=== PATIENT | male | born 1965 | race Caucasian/White ===

== ENCOUNTER 2024-04-07 06:03 | Inpatient (IN) | payer OTHER ==
[~2024-04-07] VITALS: Ht 182.9 cm; Wt 108.0 kg
[~2024-04-07 06:03] MED LIST: AMLODIPINE BESY10 MG PO; ASPIRIN81 MG PO; BUPROPION XL150 MG PO; CIALIS20 MG PO; COREG12.5 MG PO; FLOMAX0.4 MG PO; GABAPENTIN300 MG PO; LIPITOR10 MG PO; METFORMIN HCL500 MG PO; MULTI-VITAMIN1 EACH PO; OZEMPIC2 MG/0.75 INJ; ZESTRIL10 MG PO
[2024-04-07] MEDS: SODIUM CHLORIDE 0.9% 1000ML 1,000 ML ONE (06:45)
[2024-04-07] MEDS: CEFTRIAXONE 1 GM VIAL ONE (06:45)
[2024-04-07 07:05] LABS: BASOPHILS # (AUTO) 0.1 (0.0-0.1); EOSINOPHILS # (AUTO) 0.2 (0.0-0.4); HEMATOCRIT 38.5 % (38.2-49.6); HEMOGLOBIN 12.4 g/dL (14.0-18.0); LYMPHOCYTES # (AUTO) 1.5 (1.0-3.2); LYMPHOCYTES % 22.7 % (18.0-39.1); MEAN CORPUSCULAR HEMOGLOBIN 29.6 pg (28-32); MEAN CORPUSCULAR HGB CONC 32.2 g/dL (31-35); MEAN CORPUSCULAR VOLUME 91.9 fL (81-99); MONOCYTES # (AUTO) 0.6 (0.2-0.8); NEUTROPHILS # (AUTO) 4.3 (2.1-6.9); NEUTROPHILS % 63.9 % (38.7-80.0); PLATELET COUNT 232 x10e3/uL (140-360); RED BLOOD COUNT 4.19 x10e6/uL (4.3-5.7)
[2024-04-07 07:24] LABS: ANION GAP 13.5 mmol/L (8-16); CALCIUM 9.3 mg/dL (8.4-10.2); CREATININE, SERUM 1.09 mg/dL (0.72-1.25); POTASSIUM 4.5 mmol/L (3.5-5.1)
[2024-04-07] MEDS ORDERED: IOPAMIDOL 610MG/1ML 300 MG/ML VIAL IV ONE (10:04)
[2024-04-07] MEDS: HYDROMORPHONE 1MG/1ML INJ ONE (12:12)
[2024-04-07] MEDS ORDERED: ONDANSETRON HCL INJ 2MG/ML 2ML 2 MG/ML VIAL IV PRN (12:45)
[2024-04-07] MEDS: Morphine 2mg Syringe 2 MG/ML SYR ONE (12:45)
[2024-04-07] MEDS ORDERED: DIPHENHYDRAMINE HCL 25 MG CAP PO PRN (12:45)
[2024-04-07] MEDS: PHENAZOPYRIDINE HCL 100 MG TAB PO PRN (12:45)
[2024-04-07] MEDS ORDERED: MIDAZOLAM HCL 2 MG/2 ML VIAL ONE (13:03)
[2024-04-07] MEDS ORDERED: FENTANYL CITRATE/PF 100MCG/2 ML INJ ONE (13:03)
[2024-04-07 13:24] LABS: BASOPHILS # (AUTO) 0.1 (0.0-0.1); BASOPHILS % 0.3 % (0.0-1.0); EOSINOPHILS # (AUTO) 0.1 (0.0-0.4); EOSINOPHILS % 0.5 % (0.0-6.0); HEMATOCRIT 39.8 % (38.2-49.6); HEMOGLOBIN 12.6 g/dL (14.0-18.0); LYMPHOCYTES # (AUTO) 1.5 (1.0-3.2); LYMPHOCYTES % 9.7 % (18.0-39.1); MEAN CORPUSCULAR HEMOGLOBIN 29.9 pg (28-32); MEAN CORPUSCULAR HGB CONC 31.7 g/dL (31-35); MEAN CORPUSCULAR VOLUME 94.5 fL (81-99); MONOCYTES # (AUTO) 0.3 (0.2-0.8); MONOCYTES % 2.2 % (4.4-11.3); NEUTROPHILS # (AUTO) 13.3 (2.1-6.9); NEUTROPHILS % 86.8 % (38.7-80.0); PLATELET COUNT 249 x10e3/uL (140-360); RED BLOOD COUNT 4.21 x10e6/uL (4.3-5.7); RED CELL DISTRIBUTION WIDTH 11.9 % (11.7-14.4); WHITE BLOOD COUNT 15.31 x10e3/uL (4.8-10.8)
[2024-04-07] MEDS ORDERED: LIDOCAINE HCL 2% LOCAL INJ 5 ML SDV VIAL INJ ONE (13:32)
[2024-04-07] MEDS ORDERED: PROPOFOL IV EMULSION 10 MG/ML 20 ML VIAL ONE (13:32)
[2024-04-07] MEDS ORDERED: SEVOFLURANE INHAL SOLN 250 ML PEN BTL ONE (13:32)
[2024-04-07] MEDS ORDERED: DEXAMETHASONE SOD PHOS INJ 4 MG/ML SDV ONE (13:32)
[2024-04-07] MEDS ORDERED: ONDANSETRON HCL INJ 2MG/ML 2ML 2 MG/ML VIAL ONE (13:32)
[2024-04-07 13:34] VITALS: PULSE 74; RESP 20; O2SAT 95
[2024-04-07 13:39] LABS: ANION GAP 11.8 mmol/L (8-16); CALCIUM 8.5 mg/dL (8.4-10.2); CREATININE, SERUM 1.12 mg/dL (0.72-1.25); POTASSIUM 4.8 mmol/L (3.5-5.1)
[2024-04-07] MEDS: ACETAMINOPHEN/CODEINE 300MG - 30MG TAB PO PRN (13:54)
[2024-04-07] MEDS: ACETAMINOPHEN 1000 MG/100 ML IV PRN (13:54)
[2024-04-07] MEDS: SODIUM CHLORIDE 0.9% 1000ML 1,000 ML IV SCH (13:55)
[2024-04-07 15:48] VITALS: BP 132/61; PULSE 65; RESP 17; TEMP 97.8; O2SAT 100
[2024-04-07] MEDS: CARVEDILOL 12.5 MG TAB PO SCH (16:10)
[2024-04-07] MEDS: GABAPENTIN 300 MG CAP PO SCH (16:10)
[2024-04-07] MEDS: SENNA-S TABLET PO SCH (16:10)
[2024-04-07] MEDS: METFORMIN HCL 500 MG TAB PO SCH (16:10)
[2024-04-07] MEDS: GENTAMICIN 80MG/NS 100 ML 200 ML IV ONE (16:58)
[2024-04-07 17:37] VITALS: BP 132/62; PULSE 65; RESP 17; TEMP 97.8; O2SAT 100
[2024-04-07 20:15] VITALS: PULSE 75; RESP 20; O2SAT 95
[2024-04-07 20:34] VITALS: BP 144/59; PULSE 78; RESP 20; TEMP 97.9; O2SAT 99
[2024-04-07] MEDS: ATORVASTATIN 40 MG TAB PO SCH (21:11)
[2024-04-07] MEDS: TAMSULOSIN HCL 0.4 MG CAP PO SCH (21:12)
[2024-04-07 21:24] VITALS: BP 144/59; PULSE 78; RESP 20; TEMP 97.9; O2SAT 99
[2024-04-08] VITALS (10 sets, daily range): BP systolic 114–152; BP diastolic 55–61; PULSE 70–78; RESP 17–20; TEMP 98.1–99.3; O2SAT 96–100
[2024-04-08 05:29] LABS: BASOPHILS % 0.2 % (0.0-1.0); EOSINOPHILS % 0.1 % (0.0-6.0); HEMATOCRIT 35.4 % (38.2-49.6); HEMOGLOBIN 11.3 g/dL (14.0-18.0); LYMPHOCYTES # (AUTO) 1.2 (1.0-3.2); LYMPHOCYTES % 7.9 % (18.0-39.1); MEAN CORPUSCULAR HGB CONC 31.9 g/dL (31-35); MEAN CORPUSCULAR VOLUME 93.9 fL (81-99); MONOCYTES # (AUTO) 0.9 (0.2-0.8); MONOCYTES % 6.1 % (4.4-11.3); NEUTROPHILS % 85.2 % (38.7-80.0); PLATELET COUNT 254 x10e3/uL (140-360); RED BLOOD COUNT 3.77 x10e6/uL (4.3-5.7); RED CELL DISTRIBUTION WIDTH 11.9 % (11.7-14.4); WHITE BLOOD COUNT 15.26 x10e3/uL (4.8-10.8)
[2024-04-08 05:47] LABS: ANION GAP 13.4 mmol/L (8-16); CALCIUM 8.3 mg/dL (8.4-10.2); CREATININE, SERUM 0.91 mg/dL (0.72-1.25); POTASSIUM 4.4 mmol/L (3.5-5.1)
[2024-04-08] MEDS: MULTIVITAMINS/MINERALS TAB PO SCH (08:20)
[2024-04-08] MEDS: BUPROPION HCL 150 MG TABCR PO SCH (08:21)
[2024-04-08] MEDS: AMLODIPINE BESYLATE 10 MG TAB PO SCH (08:21)
[2024-04-08] MEDS: LISINOPRIL 20 MG TAB PO SCH (08:22)
[2024-04-08] MEDS ORDERED: TEMAZEPAM 15 MG CAP PO PRN (08:30)
[2024-04-08] MEDS ORDERED: DEXTROSE 50% SYRINGE 50 ML IV PRN (08:30)
[2024-04-08] MEDS ORDERED: ASPIRIN 81 MG CHEW TAB PO SCH (09:00)
[2024-04-08] MEDS: INSULIN LISPRO 100 UNIT/1 ML 3ML VIAL SQ SCH (11:30)
[2024-04-08] MEDS ORDERED: ONDANSETRON HCL 4 MG ORAL DISINTEGRATING TAB PO PRN (12:00)
[2024-04-09] VITALS (10 sets, daily range): BP systolic 120–145; BP diastolic 55–64; PULSE 65–78; RESP 18–21; TEMP 98.3–99.8; O2SAT 97–99
[2024-04-09 06:12] LABS: BASOPHILS % 0.4 % (0.0-1.0); EOSINOPHILS # (AUTO) 0.1 (0.0-0.4); EOSINOPHILS % 1.2 % (0.0-6.0); HEMATOCRIT 35.8 % (38.2-49.6); LYMPHOCYTES # (AUTO) 1.9 (1.0-3.2); LYMPHOCYTES % 19.4 % (18.0-39.1); MEAN CORPUSCULAR HEMOGLOBIN 29.3 pg (28-32); MEAN CORPUSCULAR HGB CONC 30.7 g/dL (31-35); MEAN CORPUSCULAR VOLUME 95.2 fL (81-99); MONOCYTES # (AUTO) 0.9 (0.2-0.8); MONOCYTES % 9.3 % (4.4-11.3); NEUTROPHILS # (AUTO) 6.9 (2.1-6.9); NEUTROPHILS % 69.3 % (38.7-80.0); PLATELET COUNT 229 x10e3/uL (140-360); RED BLOOD COUNT 3.76 x10e6/uL (4.3-5.7); RED CELL DISTRIBUTION WIDTH 12.1 % (11.7-14.4); WHITE BLOOD COUNT 9.89 x10e3/uL (4.8-10.8)
[2024-04-09 06:49] LABS: ANION GAP 37.3 mmol/L (8-16); CALCIUM 8.6 mg/dL (8.4-10.2); CREATININE, SERUM 0.89 mg/dL (0.72-1.25)
[2024-04-09 06:52] LABS: POTASSIUM 3.3 mmol/L (3.5-5.1)
[2024-04-09] MEDS: ACETAMINOPHEN 325 MG TAB PO PRN (09:21)
[2024-04-10 04:00] VITALS: BP 132/54; PULSE 70; RESP 18; TEMP 98.8; O2SAT 99
[2024-04-10 06:55] LABS: BASOPHILS # (AUTO) 0.1 (0.0-0.1); BASOPHILS % 0.7 % (0.0-1.0); EOSINOPHILS # (AUTO) 0.2 (0.0-0.4); EOSINOPHILS % 2.2 % (0.0-6.0); HEMATOCRIT 38.9 % (38.2-49.6); HEMOGLOBIN 11.9 g/dL (14.0-18.0); LYMPHOCYTES # (AUTO) 1.9 (1.0-3.2); LYMPHOCYTES % 18.8 % (18.0-39.1); MEAN CORPUSCULAR HEMOGLOBIN 29.2 pg (28-32); MEAN CORPUSCULAR HGB CONC 30.6 g/dL (31-35); MEAN CORPUSCULAR VOLUME 95.3 fL (81-99); MONOCYTES # (AUTO) 0.9 (0.2-0.8); MONOCYTES % 9.1 % (4.4-11.3); NEUTROPHILS # (AUTO) 6.9 (2.1-6.9); NEUTROPHILS % 68.7 % (38.7-80.0); PLATELET COUNT 256 x10e3/uL (140-360); RED BLOOD COUNT 4.08 x10e6/uL (4.3-5.7); RED CELL DISTRIBUTION WIDTH 12.1 % (11.7-14.4); WHITE BLOOD COUNT 10.09 x10e3/uL (4.8-10.8)
[2024-04-10 07:19] LABS: ANION GAP 13.1 mmol/L (8-16); CALCIUM 9.5 mg/dL (8.4-10.2); CREATININE, SERUM 1.08 mg/dL (0.72-1.25); POTASSIUM 4.1 mmol/L (3.5-5.1)
[2024-04-10 08:00] VITALS: BP 135/65; PULSE 77; RESP 20; TEMP 98.4; O2SAT 100
[2024-04-10 09:00] VITALS: BP 135/65; PULSE 77; RESP 20; TEMP 98.4; O2SAT 100
[2024-04-10 09:57] VITALS: PULSE 76; RESP 20; O2SAT 9
[2024-04-10 11:21] VITALS: BP 132/68; PULSE 74; RESP 20; TEMP 99; O2SAT 99
[2024-04-10] MEDS ORDERED: CIPRO500 MG PO (13:49)
[2024-04-10] MEDS ORDERED: CELEBREX100 MG PO (13:49)
== END 2024-04-10 16:00 | disposition home or self-care (01) | DRG 713 ==
LOC: OR 06:03 → PACU V 12:36 → MED/SURG 13:14
PROVIDERS: ADMIT Internal Medicine; ATTEND Internal Medicine
PROC: 0TCB8ZZ Extirpation of Matter from Bladder, Via Natural or Artificial Opening Endoscopic (ICD-10-PCS; 2024-04-07)
PROC: 0T9B70Z Drainage of Bladder with Drainage Device, Via Natural or Artificial Opening (ICD-10-PCS; 2024-04-07)
PROC: BT101ZZ Fluoroscopy of Bladder using Low Osmolar Contrast (ICD-10-PCS; 2024-04-07)
PROC: BT161ZZ Fluoroscopy of Right Ureter using Low Osmolar Contrast (ICD-10-PCS; 2024-04-07)
PROC: BT171ZZ Fluoroscopy of Left Ureter using Low Osmolar Contrast (ICD-10-PCS; 2024-04-07)
PROC: 0V508ZZ Destruction of Prostate, Via Natural or Artificial Opening Endoscopic (ICD-10-PCS; principal; 2024-04-07 10:07)
DX: N40.1 Benign prostatic hyperplasia with lower urinary tract symptoms (principal); N13.8 Other obstructive and reflux uropathy; I10 Essential (primary) hypertension; E11.9 Type 2 diabetes mellitus without complications; R33.9 Retention of urine, unspecified; E78.5 Hyperlipidemia, unspecified; N21.0 Calculus in bladder; Z79.84 Long term (current) use of oral hypoglycemic drugs
CPT/HCPCS: 36415; 74420; 80048; 82948; 83735; 85025; 88300; 94799; 99252; C1758; J0696; J1100; J1171; J1580; J2003; J2250; J2270; J2405; J7030